=== PATIENT | female | born 1955 | race Caucasian/White ===

== ENCOUNTER 2023-09-27 19:51 | Emergency (ER) | payer MEDICARE, BC ==
[~2023-09-27] VITALS: Ht 162.6 cm; Wt 90.0 kg
[2023-09-27 19:54] VITALS: TEMP 98.2
[2023-09-27] MEDS: cloNIDine 0.1 mg tablet PO ONE (20:10)
[2023-09-27] MEDS: ondansetron 4mg rapidly disintigrating tab PO ONE (20:10)
[2023-09-27 20:27] LABS: BASOPHILS # (AUTO) 0.1 X10'3 (0-0.2); BASOPHILS % (AUTO) 0.7 % (0-1); EOSINOPHILS # (AUTO) 0.1 X10'3 (0-0.9); EOSINOPHILS % (AUTO) 1.5 % (0-6); HEMATOCRIT 47.3 % (35.0-45.0); HEMOGLOBIN 16.3 g/dl (12.0-16.0); LYMPHOCYTES # (AUTO) 3.9 X10'3 (1.1-4.8); LYMPHOCYTES % (AUTO) 39.3 % (21-51); MEAN CORPUSCULAR HEMOGLOBIN 30.8 PG (27.0-31.0); MEAN CORPUSCULAR HGB CONC 34.4 g/dL (33.0-36.5); MEAN CORPUSCULAR VOLUME 89.7 FL (78-98); MEAN PLATELET VOLUME 9.1 FL (7.4-10.4); MONOCYTES # (AUTO) 0.5 X10'3 (0-0.9); MONOCYTES % (AUTO) 5.5 % (2-12); NEUTROPHILS # (AUTO) 5.2 X10'3 (1.8-7.7); PLATELET COUNT 165 X10'3 (140-440); RED BLOOD COUNT 5.27 X10'6 (4.20-5.60); RED CELL DISTRIBUTION WIDTH 13.3 % (11.5-14.5); WHITE BLOOD COUNT 9.8 X10'3 (4.5-11.0)
[2023-09-27 20:39] LABS: APTT 26 SECONDS (22-32); INR 1.1 INR; PROTHROMBIN TIME 11.1 SECONDS (9.0-12.0)
[2023-09-27 20:42] LABS: ALANINE AMINOTRANSFERASE 41 U/L (12-78); ALBUMIN 4.2 G/DL (3.4-5.0); ALBUMIN/GLOBULIN RATIO 1.1 (1.1-1.5); ALKALINE PHOSPHATASE 97 IU/L (46-116); ANION GAP 10 (8-16); ASPARTATE AMINO TRANSFERASE 24 U/L (10-37); BILIRUBIN,TOTAL 0.4 MG/DL (0.1-1.0); BLOOD UREA NITROGEN 17 MG/DL (7-18); CALCIUM 9.9 MG/DL (8.5-10.1); CHLORIDE 102 MMOL/L (99-107); CREATININE 0.85 MG/DL (0.40-0.90); GLUCOSE 114 MG/DL (70-104); POTASSIUM 3.5 MMOL/L (3.5-5.1); SODIUM 140 MMOL/L (135-145); TOTAL CARBON DIOXIDE 27.6 MMOL/L (24-32); TOTAL PROTEIN 8.1 G/DL (6.4-8.2); eCRCL 56 ML/MIN; eGFR 67 ML/MIN
[2023-09-27] MEDS: LORazepam 2 mg/ml vial IV ONE (20:45)
[2023-09-27] MEDS: diltiazem 5mg/ml 5ml inj. IV ONE (20:45)
[2023-09-27 20:57] LABS: FREE T4 (FREE THYROXINE) 0.83 NG/DL (0.73-1.40); MAGNESIUM 2.2 MG/DL (1.5-2.4); PRO BRAIN NATRIURETIC PEPTIDE 34 PG/ML (0-125); THYROID STIMULATING HORMONE 1.79 ulU/ml (0.34-4.50)
[2023-09-27 22:02] VITALS: BP 136/79; PULSE 76; RESP 14; O2SAT 99
== END 2023-09-27 22:03 | disposition home or self-care (01) ==
LOC: ER 19:52
DX: F41.1 Generalized anxiety disorder (principal); Z88.2 Allergy status to sulfonamides; R51.9 Headache, unspecified
CPT/HCPCS: 36415; 70450; 71045; 80053; 83735; 83880; 84439; 84443; 84484; 85025; 85610; 85730; 93005; 96374; 96375; 99285; J2060; J3490